=== PATIENT | female | born 1985 | race Caucasian/White ===

== ENCOUNTER 2017-02-24 19:02 | Emergency (ER) | payer MEDICAID ==
[~2017-02-24] VITALS: Ht 172.7 cm; Wt 61.2 kg
[2017-02-24] MEDS ORDERED: ALBUTEROL SULF8.5 GM INH (19:03)
[2017-02-24 19:15] VITALS: BP 130/82
[2017-02-24] MEDS ORDERED: HYDROmorphone 1mg/ml Carpuject IVP ONE (19:15)
[2017-02-24 19:58] LABS: BASOPHILS % (AUTO) 1.6 % (0.0-2.0); LYMPHOCYTES % (AUTO) 36.9 % (20.0-45.0); MEAN CORPUSCULAR HEMOGLOBIN 32.7 PG (27.0-31.0); MEAN CORPUSCULAR HGB CONC 34.1 G/DL (32.0-36.0); MEAN CORPUSCULAR VOLUME 96 FL (80-99); MEAN PLATELET VOLUME 5.4 FL (6.5-10.1); MONOCYTES % (AUTO) 9.6 % (1.0-10.0); NEUTROPHILS % (AUTO) 48.9 % (45.0-75.0); PLATELET COUNT 353 K/UL (150-450); RED BLOOD COUNT 4.18 M/UL (4.20-5.40); WHITE BLOOD COUNT 5.5 K/UL (4.8-10.8)
[2017-02-24 20:33] LABS: ALANINE AMINOTRANSFERASE 28 U/L (3-33); ALBUMIN/GLOBULIN RATIO 1.9 (1.0-2.7); ANION GAP 13 (5-15); ASPARTATE AMINO TRANSFERASE 38 U/L (5-40); CALCIUM 9.4 mg/dL (8.6-10.2); CARBON DIOXIDE 28 mEQ/L (20-30); CHLORIDE 99 mEQ/L (98-107); CREATININE 0.9 mg/dL (0.5-0.9); GLOMERULAR FILTRATION RATE > 60 mL/min (>60); HEMOLYSIS 6; POTASSIUM 3.9 mEQ/L (3.4-4.9); SODIUM 140 mEQ/L (135-145); TOTAL PROTEIN 6.4 g/dL (6.6-8.7)
[2017-02-24] MEDS ORDERED: IBUPROFEN600 MG ORAL (20:53)
[2017-02-24] MEDS ORDERED: PERCOCET 10-321 EACH ORAL (20:53)
[2017-02-24 21:15] VITALS: BP 128/79
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
--- NOTE | 2017-02-25 10:17 | Diagnostic Imaging Report ---
Indications: Head trauma, pain Technique: Continuous helical CT imaging of the brain was performed with automatic exposure control on a Siemens sensation [address] scanner. Axial and coronal images were reconstructed at 5 mm slice thickness and interval. CTDI volume(s): 70 mGy Total DLP: 1397 mGy-cm Findings: Comparison: None. Intracranial anatomy is unremarkable. No evidence of mass or hemorrhage, other attenuation abnormality, mass effect, midline shift, hydrocephalus or increased intracranial pressure. Bone window images are unremarkable. Visualized paranasal sinuses and mastoid air cells are clear. IMPRESSION: Negative noncontrast CT scan of the brain --no evidence of acute injury. This correlates with Dr. Gates's preliminary report. The CT scanner at [facility] is accredited by the [employer] and the scans are performed using protocols designed to limit radiation exposure to as low as reasonably achievable to attain images of sufficient resolution adequate for diagnostic evaluation.
--- NOTE | 2017-02-25 12:39 | Diagnostic Imaging Report ---
Indications: Chest trauma, pain Technique: Continuous helical CT imaging of the thorax and upper abdomen was performed with automatic exposure control on a Siemens sensation [address] scanner. Axial images were reconstructed at 5 mm slice thickness and interval. Coronal images were reconstructed at 5 mm slice thickness. No IV contrast was administered secondary to requesting physician's order. CTDI volume(s): 10 mGy Total DLP: 430 mGy-cm Findings: Comparison: None No fracture identified. Vertebral alignment is intact. Overlying chest wall soft tissues unremarkable. Multiple subcentimeter noncalcified nodules right pulmonary lower lobe. Lungs otherwise clear and normally, symmetrically inflated. No pneumothorax, pleural effusion, or other pleural abnormality. Heart normal size. No pericardial abnormality. No mediastinal or hilar obviously enlarged lymph nodes, other obvious abnormal mass or fluid collection. Clustered calcified nodules upper pole left kidney. 2.5 cm circumscribed low-attenuation focus in hepatic segment 7. 5 mm circumscribed low-attenuation focus in hepatic segment 3. These are not further characterizable. IMPRESSION: No evidence of acute injury Nonspecific small nodules right lung base, favor granulomatous over neoplastic. Followup CT scan recommended in 6 months. Nonspecific liver lesions. Ultrasound correlation recommended. Left nephrolithiasis This correlates with Dr. Gates's preliminary report.
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
== END 2017-02-24 21:15 | disposition home or self-care (01) ==
LOC: EDBD 19:02 → EMR 19:32
DX: S70.01XA Contusion of right hip, initial encounter (principal); S20.211A Contusion of right front wall of thorax, initial encounter; V19.9XXA Pedal cyclist (driver) (passenger) injured in unspecified traffic accident, initial encounter; Y93.9 Activity, unspecified; Y99.9 Unspecified external cause status; F11.20 Opioid dependence, uncomplicated; R51 Headache; R07.81 Pleurodynia; M25.551 Pain in right hip; J45.909 Unspecified asthma, uncomplicated
CPT/HCPCS: 36415; 70450; 71250; 72170; 73502; 80053; 84703; 85025; 96360; 96374; 99284; J1170; J7040